=== PATIENT | male | born 1960 | race Caucasian/White ===

== ENCOUNTER → 2021-01-31 | Outpatient (CLI) | payer BC, OTHER | LOC: SJCVCIMAG | PROVIDERS: ATTEND Internal Medicine | DX: I35.8 Other nonrheumatic aortic valve disorders (principal); R94.31 Abnormal electrocardiogram [ECG] [EKG]; R00.2 Palpitations; R01.1 Cardiac murmur, unspecified ==

== ENCOUNTER → 2021-02-01 | Outpatient (CLI) | payer BC, OTHER | LOC: SJCVCIMAG 10:48 | PROVIDERS: ATTEND Internal Medicine | DX: I44.0 Atrioventricular block, first degree (principal); R94.31 Abnormal electrocardiogram [ECG] [EKG]; E78.5 Hyperlipidemia, unspecified; E11.9 Type 2 diabetes mellitus without complications; R00.0 Tachycardia, unspecified; R06.00 Dyspnea, unspecified; R53.83 Other fatigue; Z79.82 Long term (current) use of aspirin ==